=== PATIENT | male | born 1970 | race Caucasian/White ===

== ENCOUNTER 2022-10-03 13:34 | Emergency (ER) | payer OTHER, SELFPAY | END 2022-10-03 14:24 | disposition left against medical advice (07) | DX: Z53.21 Procedure and treatment not carried out due to patient leaving prior to being seen by health care provider (principal) | CPT/HCPCS: 99199 ==

== ENCOUNTER 2022-10-03 17:22 | Emergency (ER) | payer OTHER, SELFPAY ==
--- NOTE | ~2022-10-03 | XR_ITS ---
EXAMINATION: XR humerus RT DATE: 10/03/2022 20:36 INDICATION: Lifting injury with palpable pop and right acetabula bruising TECHNIQUE: AP and lateral views of the right humerus were obtained. COMPARISON: None. FINDINGS: Bone alignment is normal. A few old healed right-sided rib fractures. No acute fracture. Moderate ost eoarthritis at the right acromioclavicular joint. The glenohumeral and elbow joint spaces are normal. Soft tissues are unremarkable with no elbow joint effusion. IMPRESSION: 1. A few old right-sided rib fractures. No acute osseous abnormality. 2. Moderate acromioclavicular osteoarthritis. Reviewed, dictated and finalized at location A.
[2022-10-03 17:38] VITALS: BP 134/93; PULSE 71; RESP 16; TEMP 36.4; O2SAT 99
[2022-10-03 19:41] VITALS: BP 129/88; PULSE 64; RESP 16; O2SAT 100
--- NOTE | 2022-10-03 20:28 | ED.GENADULT ---
HPI - General Adult General Chief complaint: Extremity Injury, Upper <NHAN Garces Last Filed: 10/04/22 03:22> Stated complaint: right arm injury <NHAN Garces Last Filed: 10/04/22 03:22> Time Seen by Provider: 10/03/22 19:49 <Mj Stout PA-C - Last Filed: 10/04/22 03:22> Source: patient <NHAN Garces Last Filed: 10/04/22 03:22> Mode of arrival: ambulatory <NHAN Garces Last Filed: 10/04/22 03:22> Limitations: no limitations <NHAN Garces Last Filed: 10/04/22 03:22> History of Present Illness HPI narrative: This is a 51-year-old male who presents to the ED with chief complaint of right biceps injury occurring at work today. Patient was lifting a heavy piece of equipment over his head and felt a pop in that right upper arm. He has had discomfort with certain movements since. He states it is not overtly painful. Reports there is swelling, lots of bruising in the area. Denies any further site of pain or injury. Denies numbness or weakness. <NHAN Garces Last Filed: 10/04/22 03:22> Related Data Allergies/adverse reactions: Allergies Allergy/AdvReac Type Severity Reaction Status Date / Time No Known Allergies Allergy Verified 10/03/22 19:44 <Mj Stout PA-C - Last Filed: 10/04/22 03:22> Review of Systems Review of Systems: All systems as dictated in HPI <NHAN Garces Last Filed: 10/04/22 03:22> Exam Narrative: GENERAL: Well-appearing, well-nourished, and in no acute distress. HEAD: Normocephalic, atraumatic. EYES: PERRLA and EOMI. ENT: Nares clear, no rhinorrhea or epistaxis. Mucous membranes moist. Oropharynx without tonsillar hypertrophy exudate or other lesions. NECK: Supple. No adenopathy or masses. CHEST: No respiratory distress. Clear to auscultation. No wheezes rales or rhonchi HEART: Regular rate and rhythm. No murmur heard. Normal peripheral pulses. ABDOMEN: Soft, nontender, nondistended, normal active bowel sounds. MSK: Right upper extremity: Significant ecchymosis throughout the biceps region. Minimal tenderness throughout the upper arm, shoulder or elbow. Full strength exhibited with flexion. Slight deformity noted. Neurovascular intact distally. Soft compartments Left upper extremity: Benign. SKIN: Warm, dry, no rash. NEURO: Alert and oriented x3. No focal deficits. PSYCH: Normal mood and affect. <Mj Stout PA-C - Last Filed: 10/04/22 03:22> Course IRRIGATOR VALVE PIPE/PA Physician Supervision This is a was performed by both a physician and an APC. I performed all aspects of the MDM as documented w/ the following additions: 51-year-old male presenting with biceps pain after heavy lifting. Findings consistent with tear of the biceps muscle. Patient discharged with a follow-up.All questions answered. Patient in agreement w/ disposition. <Otis Gracia MD - Last Filed: 10/06/22 03:17> Vital Signs Vital signs: Vital Signs Temperature 97.6 F 10/03/22 17:38 Pulse Rate 71 10/03/22 17:38 Respiratory Rate 16 10/03/22 17:38 Blood Pressure 134/93 H 10/03/22 17:38 Pulse Oximetry 99 10/03/22 17:38 Oxygen Delivery Room Air 10/03/22 17:38 Temperature 97.6 F 10/03/22 17:38 Pulse Rate 64 10/03/22 19:41 Respiratory Rate 16 10/03/22 19:41 Blood Pressure 129/88 10/03/22 19:41 Pulse Oximetry 100 10/03/22 19:41 Oxygen Delivery Room Air 10/03/22 19:41 <Mj Stout PA-C - Last Filed: 10/04/22 03:22> Vital Signs Temperature 97.6 F 10/03/22 17:38 Pulse Rate 71 10/03/22 17:38 Respiratory Rate 16 10/03/22 17:38 Blood Pressure 134/93 H 10/03/22 17:38 Pulse Oximetry 99 10/03/22 17:38 Oxygen Delivery Room Air 10/03/22 17:38 Temperature 97.6 F 10/03/22 17:38 Pulse Rate 64 10/03/22 19:41 Respiratory Rate 16 10/03/22 19:41 Blood Pressure 129/88 10/03/22 19:41 Pulse Oximetry 100 10/03/22 19:41
== END 2022-10-03 21:35 | disposition home or self-care (01) ==
PROVIDERS: Emergency Provider Physician Assistant
DX: S46.211A Strain of muscle, fascia and tendon of other parts of biceps, right arm, initial encounter (principal); X50.0XXA Overexertion from strenuous movement or load, initial encounter
CPT/HCPCS: 73060; 99283; A4565

== ENCOUNTER 2025-01-27 22:32 | Emergency (ER) | payer SELFPAY ==
[2025-01-27 23:41] VITALS: BP 147/86; PULSE 72; RESP 20; TEMP 36.9; O2SAT 97
--- NOTE | 2025-01-28 00:46 | ED_ITS ---
HPI - General Adult General Chief complaint: Unspecified Stated complaint: Tooth pain Time Seen by Provider: 01/28/25 00:25 History of Present Illness HPI narrative: 54-year-old male with history of dental caries and dental work previously as well as extraction. Patient presents to the emergency depart with right upper jaw pain in his premolar tooth. States it hurts to chew and eat. no difficulty swallowing. No fever chills. No dental trauma. He is asking for antibiotics until he can see a dentist. He states he has been using ibuprofen and been having relief of pain from that. Would like something stronger for breakthrough pain but comfortable at this time. Related Data Allergies Allergy/AdvReac Type Severity Reaction Status Date / Time No Known Allergies Allergy Verified 01/27/25 22:33 Review of Systems Review of Systems: As reviewed above in HPI All systems reviewed & are unremarkable except as noted in HPI and below Exam Narrative: GENERAL: [Well-appearing, well-nourished, and in no acute distress.] HEAD: [Normocephalic, atraumatic.] EYES: [PERRLA and EOMI.] ENT: Nares clear, no rhinorrhea or epistaxis. Mucous membranes moist. Previous dental caries and fillings in the right upper jaw. Tenderness to percussion of the right 1st premolar. No periapical abscess or dental abscess drainage. No trismus. NECK: Supple. CHEST: [Clear to auscultation. No respiratory distress.] HEART: [Regular rate and rhythm]. No murmur heard. [Normal peripheral pulses.] ABDOMEN: [Soft, nondistended], [nontender], [No rigidity or guarding] EXTREMITIES: Normal range of motion. [No edema.] SKIN: Warm, dry, no rash. NEURO: [No focal deficits]. Alert and oriented [x3.] PSYCH: [Normal mood and affect.] Course Vital Signs Vital signs: Vital Signs Temperature 36.9 C 01/27/25 23:41 Pulse Rate 72 01/27/25 23:41 Respiratory Rate 20 01/27/25 23:41 Blood Pressure 147/86 H 01/27/25 23:41 Pulse Oximetry 97 01/27/25 23:41 Temperature 36.6 C 01/28/25 02:04 Pulse Rate 84 01/28/25 02:04 Respiratory Rate 14 01/28/25 02:04 Blood Pressure 153/97 H 01/28/25 02:04 Pulse Oximetry 94 01/28/25 02:04 MDM MDM Narrative Medical decision making narrative: 54-year-old male with history of dental caries and dental work previously as well as extraction. Patient presents to the emergency depart with right upper jaw pain in his premolar tooth. States it hurts to chew and eat. no difficulty swallowing. No fever chills. No dental trauma. He is asking for antibiotics until he can see a dentist. He states he has been using ibuprofen and been having relief of pain from that. Would like something stronger for breakthrough pain but comfortable at this time. Previous dental caries and fillings in the right upper jaw. Tenderness to percussion of the right 1st premolar. No periapical abscess or dental abscess drainage. No trismus. patient is well appearing afebrile. Given a dose of Augmentin. Safe for discharge for dental follow-up and given Augmentin and prescriptions for Toradol as needed. Differential Diagnosis Differential Diagnosis: Dental trauma, dental caries, dental abscess, periapical abscess Discharge Plan Discharge Clinical Impression: Dentalgia Patient Disposition: Home Condition: Stable Instructions: Antibiotic Form, Toothache (ED) Additional Instructions: Follow-up with dentistry. Return with any emergent concerns. We have sent you strong pain medicines for breakthrough pain. Continue taking your ibuprofen and tylenol. Antibiotics for 10 days. Patient Language: Arabic Prescriptions: New tramadol 50 mg tablet 50 mg PO Q6H PRN (Reason: pain) Qty: 14 0RF amoxicillin-pot clavulanate 875-125 mg tablet 1 tablet PO Q12H 10 Days Qty: 20 0RF Follow-up/Referrals: PHYSICIAN,NON LINEAR EDITOR [Primary Care Provider, Internal Medicine] Time of Disposition: 00:57
[2025-01-28] MEDS: KETOROLAC 30 MG/ML VIAL (*BKC) IM (01:45)
[2025-01-28 02:04] VITALS: BP 153/97; PULSE 84; RESP 14; TEMP 36.6; O2SAT 94
== END 2025-01-28 02:05 | disposition home or self-care (01) ==
LOC: ANHED 01-28 01:04
PROVIDERS: Emergency Provider Student in an Organized Health Care Education/Training Program
DX: K08.89 Other specified disorders of teeth and supporting structures (principal)
CPT/HCPCS: 96372; 99283; A9270; J1885